=== PATIENT | female | born 1990 | race Hispanic/Latino ===

== ENCOUNTER 2022-10-31 20:08 | Emergency (ER) | payer MEDICAID ==
[~2022-10-31] VITALS: Ht 167.6 cm; Wt 78.9 kg
[2022-10-31 21:47] LABS: HEMATOCRIT 33.3 % (36-48); MEAN CORPUSCULAR HEMOGLOBIN 30.8 pg (27.0-33.0); MEAN CORPUSCULAR HGB CONC 34.8 g/dL (32.0-36.0); MEAN CORPUSCULAR VOLUME 88.3 fL (79-99); RED BLOOD CELL COUNT(AUTO) 3.77 MIL/uL (4.00-5.50); RED CELL DISTRIBUTION WIDTH 12.9 % (11.0-15.5); WHITE BLOOD COUNT (AUTO) 6.3 K/uL (4.8-10.8)
[2022-10-31 22:04] LABS: CREATININE 0.8 mg/dL (0.5-1.5); POTASSIUM 3.6 mmol/L (3.5-5.1)
[2022-10-31 22:08] LABS: ALBUMIN 2.7 g/dL (3.5-5.0); BILIRUBIN,TOTAL 0.7 mg/dL (0.2-1.0); TOTAL PROTEIN, SERUM 6.6 g/dL (6.0-8.3)
[2022-10-31 23:20] LABS: APPEARANCE,URINE CLOUDY (CLEAR); BILIRUBIN,URINE NEGATIVE (NEGATIVE); COLOR,URINE YELLOW (YELLOW); GLUCOSE, URINE (UA) NEGATIVE (NEGATIVE); KETONES,URINE 150 mg/dL (NEGATIVE); LEUKOCYTE ESTERASE ,URINE 500 Leu/uL (NEGATIVE); NITRATE,URINE NEGATIVE (NEGATIVE); OCCULT BLOOD,URINE NEGATIVE (NEGATIVE); PH,URINE 5.5 (5.0-8.0); PROTEIN,URINE 50 mg/dL (NEGATIVE); UROBILINOGEN,URINE 0.2 mg/dL (0.2-1.0)
[2022-10-31 23:23] LABS: HCG,QUALITATIVE URINE POSITIVE (NEGATIVE)
[2022-10-31 23:24] LABS: ADD UA MICROSCOPIC YES
[2022-10-31 23:36] LABS: BACTERIA,URINE RARE /HPF (None Seen); MUCUS,URINE FEW LPF (None Seen); SQUAMOUS EPITHELIAL CELL,UR MANY /HPF (0-2); WBC,URINE TNTC /HPF (0-1)
[2022-11-01] MEDS ORDERED: LACTATED RINGERS 1000ML 2,000 ML IV SCH
[2022-11-01] MEDS ORDERED: CEPHALEXIN 500 MG CAPSULE PO ONE
[2022-11-01] MEDS ORDERED: ONDANSETRON 4MG INJ IVP ONE
[2022-11-01 00:54] VITALS: BP 118/66; PULSE 78; RESP 16; O2SAT 98
[2022-11-01] MEDS ORDERED: CEPH500B PO (05:55)
[2022-11-01] MEDS ORDERED: ONDA4TAB10 PO (05:55)
== END 2022-11-01 06:09 | disposition home or self-care (01) ==
LOC: EDH 20:08
DX: O23.42 Unspecified infection of urinary tract in pregnancy, second trimester (principal); N39.0 Urinary tract infection, site not specified; O26.892 Other specified pregnancy related conditions, second trimester; A08.4 Viral intestinal infection, unspecified; Z3A.18 18 weeks gestation of pregnancy
CPT/HCPCS: 99283; 96374; 80053; 85027; 87040 ×2; 87088; 83605; 81001; 81025; 36415 ×2; J7120; J2405

== ENCOUNTER 2023-03-09 17:22 | Observation (INO) | payer MEDICAID ==
[~2023-03-09 17:22] MED LIST: CEPH500B PO; ONDA4TAB10 PO
[2023-03-09 17:51] LABS: APPEARANCE,URINE CLEAR (CLEAR); BILIRUBIN,URINE NEGATIVE (NEGATIVE); COLOR,URINE YELLOW (YELLOW); GLUCOSE, URINE (UA) 300 mg/dL (NEGATIVE); KETONES,URINE 5 mg/dL (NEGATIVE); LEUKOCYTE ESTERASE ,URINE 500 Leu/uL (NEGATIVE); NITRATE,URINE NEGATIVE (NEGATIVE); OCCULT BLOOD,URINE NEGATIVE (NEGATIVE); PROTEIN,URINE 30 mg/dL (NEGATIVE)
[2023-03-09 17:53] LABS: ADD UA MICROSCOPIC YES
[2023-03-09 17:56] LABS: BACTERIA,URINE RARE /HPF (None Seen); CALCIUM OXALATE CRYSTALS,UR RARE /LPF (None Seen); MUCUS,URINE RARE LPF (None Seen); SQUAMOUS EPITHELIAL CELL,UR MOD /HPF (0-2)
[2023-03-09] MEDS ORDERED: LACTATED RINGERS 1000ML IV ONE (19:00)
[2023-03-09] MEDS ORDERED: CEFTRIAXONE 500MG VIAL IV ONE (19:00)
[2023-03-19] MEDS ORDERED: PREN1TAB26 PO (15:24)
[2023-03-19] MEDS ORDERED: ACYC-138 PO (15:24)
[2023-03-20] MEDS ORDERED: IBUP-2077 PO (12:00)
== END 2023-03-09 20:30 | disposition home or self-care (01) ==
LOC: LDH 17:22
PROVIDERS: ADMIT Obstetrics & Gynecology; ATTEND Obstetrics & Gynecology
DX: O99.891 Other specified diseases and conditions complicating pregnancy (principal); M54.50 Low back pain, unspecified; O26.893 Other specified pregnancy related conditions, third trimester; R10.30 Lower abdominal pain, unspecified; Z3A.37 37 weeks gestation of pregnancy; Z79.899 Other long term (current) drug therapy
CPT/HCPCS: 96365; 59025; 87088; 81001; G0378 ×3; G0379; J0696